=== PATIENT | female | born 1950 | race Caucasian/White ===

== ENCOUNTER → 2024-02-08 12:38 | Outpatient (REF) | payer MEDICARE, OTHER, SELFPAY ==
[2024-02-08 13:38] LABS: % Basophils 0.2 % (0-2); % Immature Granulocytes 0.3 % (0-0.5); % Lymphocytes 8.5 % (20.5-51.1); % Monocytes 0.8 % (1.7-9.3); % Neutrophils 90.2 % (42.2-75.2); Absolute Lymphocytes 0.8 10^3/uL (1.2-3.4); Absolute Monocytes 0.1 10^3/uL (0.1-0.6); Absolute Neutrophils 8.9 10^3/uL (1.4-6.5); Hematocrit 42.9 % (37.0-47.0); Hemoglobin 15.6 g/dL (12.0-16.0); Mean Corp Hgb Conc. 36.4 g/dL (33.0-37.0); Mean Corpuscular Hgb 31.7 pg (27.0-31.0); Mean Corpuscular Volume 87.2 fL (81.0-99.0); Mean Platelet Volume 10.3 fL (7.4-10.4); Nucleated Red Blood Cells % 0 %; Platelet Count 240 10^3/uL (130-400); Red Blood Cell Count 4.92 10^6/uL (4.20-5.40); Red Cell Dist. Width 12.6 % (11.5-14.5); White Blood Cell Count 9.9 10^3/uL (4.8-10.8)
[2024-02-08 13:48] LABS: INR 1.29; PT 15.9 Sec (11.4-14.6)
[2024-02-08 14:13] LABS: ALT (SGPT) 42 U/L (0-35); AST (SGOT) 34 U/L (14-36); Albumin 4.7 g/dl (3.5-5.0); Alkaline Phosphatase 86 U/L (38-126); Blood Urea Nitrogen 20 mg/dl (7-17); Calcium 10.1 mg/dl (8.4-10.2); Carbon Dioxide 21 mmol/L (22-30); Chloride 107 mmol/L (98-107); Glucose 183 mg/dl (70-99); Potassium 4.4 mmol/L (3.5-5.1); Sodium 135 mmol/L (135-145); Total Bilirubin 0.7 mg/dl (0.2-1.3); Total Protein 7.2 g/dl (6.3-8.2); eGFR > 60.00
== END ==
LOC: SDSPAT 12:38
PROVIDERS: ATTENDING PHYSICIAN Internal Medicine Cardiovascular Disease; FAMILY PHYSICIAN Nurse Practitioner; OTHER PHYSICIAN Internal Medicine Interventional Cardiology
DX: Z01.818 Encounter for other preprocedural examination (principal); I48.91 Unspecified atrial fibrillation
CPT/HCPCS: 36415; 75572; 80053; 83735; 85025; 85610; 86850; 86900; 86901; 93005; Q9967

== ENCOUNTER 2024-02-26 05:55 | Day surgery (SDC) | payer MEDICARE, OTHER, SELFPAY ==
[2024-02-08 12:46] VITALS: BMI 21.5
--- NOTE | 2024-02-08 13:18 | HPS.HSE ---
Family Physician
-
Family Physician: NOT KNOW UNKNOWN - PT DOES
Chief Complaint
-
Recurrent, paroxysmal atrial fibrillation.
History of Present Illness
The patient is a 73-year-old female presenting today for recurrent, paroxysmal atrial fibrillation. She previously underwent pulmonary vein isolation with Dr. West Pacheco for her arrhythmia in February 2021. She returns to [facility]
today with complaints of dyspnea, most notably with exertion, and rare palpitations secondary to her diagnosis. She is on current pharmacological therapy with Metoprolol Tartrate and Diltiazem. She has been complaint with Eliquis for oral
anticoagulation. She notes that her current symptoms associated with her atrial fibrillation are greatly interfering with her activities of daily living and are overall affecting her quality of life. She is interested in pursuing pulmonary vein
isolation again for further arrhythmia management. She denies any current complaints today such as chest pain, shortness of breath at rest, nausea, vomiting, diarrhea, lightheadedness, dizziness, cough, sore throat, or fever.
Medical History
Past Medical History
Past Medical History: Reports Other
Additional Past Medical History:
1. Recurrent, paroxysmal atrial fibrillation, status post pulmonary vein isolation 02/2021; pharmacological therapy with Metoprolol Tartrate and Diltiazem and oral anticoagulation with Eliquis.
2. Hypertension.
3. Hypercholesterolemia.
4. Moderate coronary atherosclerosis.
5. Hypertrophic cardiomyopathy, preserved ejection fraction.
6. Mild mitral regurgitation.
7. Venous varicosities.
8. Left lower extremity DVT, 1978, provoked in the setting of fracture, prolonged immobility, and control use; resolved with Warfarin.
9. Diverticulosis.
10. Degenerative disc disease.
11. Endometrial cancer, 1998, status post hysterectomy.
12. Osteoporosis.
13. Prediabetes.
14. History of elevated transaminases.
Past Surgical History: Reports Other
Additional Past Surgical History:
1. Pulmonary vein isolation.
2. Bilateral tubal ligation.
3. Hysterectomy.
4. Colonoscopy x3.
Social History
Tobacco: Non-smoker
Alcohol: Other (Seldom alcohol use reported. )
Personal:
Living: Other (She lives with her in a ranch style home. )
Family History
Family History: Not pertinent
Allergies / Home Medications
Allergy/Medication List:
MEDICATIONS:
1. Cholecalciferol 1000 units p.o. daily.
2. Calcium Citrate/vitamin D3 one tablet p.o. twice a day.
3. Ascorbic acid 500 mg p.o. every evening.
4. Multivitamin one tablet p.o. daily.
5. Zetia 10 mg p.o. every evening.
6. Metoprolol Tartrate 50 mg p.o. twice a day.
7. Diltiazem HCl 120 mg p.o. twice a day.
8. Atorvastatin 40 mg p.o. every evening.
9. Apixaban 5 mg p.o. twice a day.
10. Alendronate 70 mg p.o. on Saturdays.
11. Collegen peptide 5 grams p.o. Mondays, Wednesdays, and Fridays.
ALLERGIES: Bactrim. IV contrast dye.
Review of Systems
-
A 12 point ROS was completed and negative except as noted: Yes
Physical Exam
Vital Signs
Blood pressure 127/86. Heart rate 90. Respirations 18. Pulse ox 97% on room air.
Height 5 feet, 8 inches. Weight 64.2 kg. BMI 21.5.
Physical Exam
General: Well Developed, Well Nourished and No Apparent Distress
HEENT: NormoCephalic, Moist mucous membranes, Atraumatic and PERRLA
Respiratory: Clear
Cardiac: Irregular Rhythm
GI: Soft, Non Tender and Non Distended
Musculoskeletal: Normal Gait & Station
Skin: Warm and Dry
Neuro: AO x 3 and Nonfocal/grossly intact
Laboratory Results
-
DIAGNOSTIC STUDIES as of 02/08/2024: White blood cell count 9.9. Hemoglobin 15.6. Platelet count 240,000. PT 15.9. INR 1.29. Sodium 135. Potassium 4.4. BUN 20. Creatinine 0.7. Glucose 183. Calcium 10.1. AST 34. ALT 42. Albumin 4.7. Blood type O
positive.
EKG 02/08/2024: Atrial fibrillation. Moderate voltage criteria for LVH, may be normal variant. Cannot rule out anterior infarct, age undetermined, Marked ST abnormality.
Chest CT 02/08/2024: Ostial insertion of the superior segment right lower lobe pulmonary venous drainage at the superior margin of the right inferior pulmonary venous ostium. Short segment common channel of the left superior and inferior pulmonary
veins. No left atrial filling defect/thrombus is identified.
Echocardiogram 11/02/2020: Ejection fraction is 59.5%. Moderate septal left ventricular hypertrophy. Left ventricular outflow gradient 25 mmHg and no changes noted with Valsalva. Grade 2 diastolic dysfunction. Mildly dilatedleft atrium. Mild
thickening of the anterior and posterior mitral valve leaflets. Severe calcification on the posterior anulus. Mild mitral valve regurgitation. Compared to the prior study, findings are similar.
Stress echocardiogram 08/17/2018: Able to achieve 12 METS with peak blood pressure 174/72 on Hemant protocol. Rare PACs and PVCs. No evidence of significant myocardial infarction or ischemia. Severe left ventricular hypertrophy.
Impression/Plan
-
IMPRESSION/PLAN:
1. Recurrent, paroxysmal atrial fibrillation: The patient is in need of pulmonary vein isolation with Dr. West Pacheco on 02/26/2024. The benefits and risks of the procedure have been explained to the patient. The patient understands these risks and
wishes to proceed. She is aware to continue her Eliquis up until the night prior to her procedure. She has been instructed to take no medications the morning of her pulmonary vein isolation.
[2024-02-26] VITALS (13 sets, daily range): BP systolic 126–164; BP diastolic 58–96; BMI 21.6
[2024-02-26 08:53] LABS: ACT-LR - POC 240 Seconds (116-155)
[2024-02-26 09:27] LABS: ACT-LR - POC 242 Seconds (116-155)
--- NOTE | 2024-02-26 10:00 | ITS.CL.ABL ---
Supervisor Grower - Ablation
Ablation
Procedure Report:
ELECTROPHYSIOLOGY ABLATION STUDY
DATE:: February 26, 2024 REFERRING: Dr. David Gonzalez
INDICATION: Paroxysmal supraventricular tachycardia in the form of atrial fibrillation. History of hypertrophic cardiomyopathy
HISTORY: See H and P. Prior cryoballoon in 2020
ANTIARRHYTHMIC DRUG: Diltiazem and metoprolol
PRE-PROCEDURE DWIGHT: No atrial thrombus
PRESENTING RHYTHM: Atrial fibrillation
'TIME-OUT': called and confirmed.
SEDATION/ANESTHESIA: provided via the anesthesia department using general anesthesia (LMA).
INTRAVENOUS/ARTERIAL ACCESS:
Right femoral venous - 8Fr
Left femoral venous - 8 Fr, 6 Fr
Left femoral arterial - 5 Fr
Ultrasound guidance for bilateral femoral vein access was utilized by me to obtain access with demonstration of normal anatomy
CHADS-VASC Score:
HAS-Bled Score
PROCEDURE:
1. A decapolar CS catheter was placed within the CS for mapping and pacing. This was also used as the reference catheter for the 3-D map.
2. The intracardiac ultrasound catheter was positioned in the RA to identify the FO for targeting of transseptal puncture, assist in identification of the pulmonary vein ostia, monitoring pre and post ablation pulmonary vein flow velocities,
monitoring for 'bubble' formation during RF application as a sign of thermal injury, and to monitor for pericardial effusion during mapping and ablation procedure. Left atrial size, LV ejection fraction, and pulmonary vein flows were monitored
pre and post ablation procedure. The other valves were inspected and found to be free of significant regurgitation or stenosis.
3. Half of the calculated heparin bolus was administered prior to the first transeptal puncture. Transseptal puncture was performed to diagnose RA and LA pressure so that safety of LA mapping and ablation could be further assessed, and to access
the left atrium and pulmonary veins for mapping and ablation. This entailed advancing an 8 Fr SL-1 sheath with dilator into the superior vena cava and withdrawing both (monitoring intracardiac ultrasound, fluoroscopy and tip pressure) with the tip
oriented toward the atrial septum. The fossa ovalis was engaged (indicated by sudden displacement of the sheath tip as well as tenting of the fossa seen on intracardiac ultrasound). Left atrial access required a pass with the Brockenbrough needle
extended. Left atrial catheter position was confirmed by pressure monitoring (RA mean pressure 8 mm Hg and LA mean presure 14 mm Hg), LA saturation (99%), as well as fluoroscopy. The sheath was advanced over the dilator and positioned in the left
atrium. This procedure was repeated for the Agilis sheath. The remainder of the calculated heparin bolus was administered and heparin was
infused to maintain ACT at 300 -350 seconds throughout the case. We utilized the Agilis sheath to cross into the left atrium and upgraded over a ProTrac wire to the 12 Occitan Contour.
4. RA pacing was performed via the proximal decapolar poles and LA pacing was performed via the distal decapolr poles.
5. A quadrapolar catheter was first positioned at the His position for His Bundle recording which was tagged via the 3-D Navex sytem, and then passed to the RVA for RV pacing and recording.
6. The multipolar catheter and the pulsed light catheter placed in each of the LIPV, LSPV, RSPV and the RIPV.
7. Next, a 3-D map was created using Navex. A 3-D reconstructed CT image was compared to the 3-D Navex map to assist in anatomic interpretation, mapping and ablation. The CT image and the NavX image were fused.
8. The pulmonary veins were isolated at baseline. We did perform carinal lesions on the left veins and right veins as well as in the antrum on the posterior wall outside the left and right veins. We then isolated the posterior wall with
extrapulmonary vein lesions with the pulsed light catheter for a total of 72 lesions. We then converted to sinus rhythm and with a multipolar catheter demonstrated entrance and exit block in all 4 pulmonary veins as well as the posterior wall. The
patient was noninducible for any other atrial tachyarrhythmia. [id number] sutures were placed to each venous access site.
9. Normal sinus and even function noted.
TOTAL FLOURO TIME: 16.7 minutes 142 mGy
TOTAL RF DURATION: 0 minutes
REVERSAL OF HEPARIN: 30 mg of protamine, slow IV administration
COMPLICATIONS:
None
Intracardiac US shows no pericardial effusion post ablation.
SUMMARY:
Complex left atrial mapping and ablation.
Isolation of the left atrial posterior wall as above with anchoring lesions given to the antrum of the left veins as well as the cheli of each of the pulmonary veins.
RECOMMENDATIONS:
1. Admit to monitored bed.
2. Resume anticoagulation
3. Out of bed 4 hours proceed to discharge
4. Continue Toprol and Cardizem for her hypertrophic cardiomyopathy
Copy to: Dr. David Gonzalez
[2024-02-26 12:59] LABS: ACT-LR - POC > 397 Seconds (116-155)
--- NOTE | 2024-02-26 17:02 | W.PN.UPDATE ---
Update Note
Progress Note Update
73 yo WF s/p PVI (same day). She feels great, no cp, sob, lanette diet, voiding, amb w/o dizziness, EKG SR, R fem site with slow ooze all day, multiple manual holds and dressing changes. Dr. Pacheco placed F08 suture in groin and she will return on
Thursday for removal. She will resume her Eliquis tonight at 7pm when she gets home. Activity restrictions reviewed. She will f/u Dr. Gonzaelz in 2 mo. SHe is for d/c home in 30 min if groin stable.
SUMMARY:
Complex left atrial mapping and ablation.
Isolation of the left atrial posterior wall as above with anchoring lesions given to the antrum of the left veins as well as the cheli of each of the pulmonary veins.
RECOMMENDATIONS:
1. Admit to monitored bed.
2. Resume anticoagulation
3. Out of bed 4 hours proceed to discharge
4. Continue Toprol and Cardizem for her hypertrophic cardiomyopathy
Copy to: Dr. David Gonzalez
--- NOTE | 2024-02-26 18:08 | W.PN.UPDATE ---
Update Note
Progress Note Update
Patient had continued skin oozing despite manual pressure so the site was sterilely prepped and draped. 1% lidocaine with epinephrine was injected subcutaneously which brought about hemostasis and significant slowing of skin oozing. Then a 3.0
prolene suture was placed at the site with complete hemostasis and the site was sterilely dressed. She will follow up to our holding area at 10am on Thursday- for suture removal. She understands to call if she notes any purulent drainage or
ongoing bleeding.
--- NOTE | 2024-02-29 10:13 | W.PN.UPDATE ---
Update Note
Progress Note Update
Pt presented to cath recovery today for right groin suture removal. Right groin soft, non tender, mod ecchymosis over right side of pubis but non tender and no ht/bleeding. Suture removed without incident and dressed w/gauze, tegaderm. Palpable
distal pulses and no edema. Reviewed groin care and activity limitation. Followup as scheduled with Dr. Gonzalez at [facility].
== END 2024-02-26 17:35 | disposition home or self-care (01) ==
LOC: CATH 05:55
PROVIDERS: ATTENDING PHYSICIAN Internal Medicine Cardiovascular Disease; FAMILY PHYSICIAN Nurse Practitioner; OTHER PHYSICIAN Internal Medicine Interventional Cardiology
DX: I48.0 Paroxysmal atrial fibrillation (principal); I47.19 Other supraventricular tachycardia; R06.09 Other forms of dyspnea; I10 Essential (primary) hypertension; E78.00 Pure hypercholesterolemia, unspecified; I25.10 Atherosclerotic heart disease of native coronary artery without angina pectoris; I42.2 Other hypertrophic cardiomyopathy; I34.0 Nonrheumatic mitral (valve) insufficiency; Z85.42 Personal history of malignant neoplasm of other parts of uterus; R73.03 Prediabetes; Z79.01 Long term (current) use of anticoagulants
CPT/HCPCS: C1732; C1894; C1730; C1733; C1893; C1766; C1892; C1759; 76937; 85347; 93005; 93656